=== PATIENT | male | born 1955 | race African-American/Black ===

== ENCOUNTER 2021-03-07 13:25 | Observation (INO) ==
[2021-03-07 13:36] VITALS: BMI 27.8
--- NOTE | 2021-03-07 14:13 | DR.N/VMALE ---
HPI Time Seen Time Seen by Provider: 03/07/21 13:43 Primary Care Physician Primary Care Physician: RIGO HPI Comment HPI Comment: PATIENT IS 65YR OLD MALE IN ER WITH ABDOMINAL PAIN, NAUSEA AND VOMITING SINCE 10:30am today. Complaints Chief Complaint Doctors Comments: ABDOMINAL PAIN, NAUSEA AND VOMITING SINCE 10:30AM TODAY. Chief Complaint:: PATIENT CAME TO ER REPORTS HAVING NAUSEA AND VOMITING WITH LOWER ABDOMINAL PAIN ONSET 1030AM. COVID-19 Coronavirus risk:travel/contact w/high risk person: No Has patient experienced Coronavirus symptoms: No Reviewed Nurses Notes Reviewed: Yes Source History Provided: Patient and Family Member Mode of Arrival Mode of Arrival: Wheelchair Timing Onset of Chief Complaint: 03/07/21 Context Onset: Spontaneous Recent: None History of: None Quality Quality: Food Particles Associated Signs and Symptoms Abdominal Pain Quality: Cramping Abdominal Pain Location: RLQ and LLQ Symptoms: Abdominal Pain PMH PMH Past Medical History: Yes Past Medical History: Anxiety, Arthritis, Coronary Artery Disease, Dementia and Hypertension Past Surgical History: Yes Surgical History: Appendectomy Past Surgical History Comment: AFIB Family History History of Family Medical Conditions: No Social History Do you use any recreational Drugs:: No Travel Risk Coronavirus risk:travel/contact w/high risk person: No Has patient experienced Coronavirus symptoms: No Infectious screening In the last 2 months have you had wt loss of >10#?: NO Have you had fever, night sweats or hemotysis?: No Have you traveled outside the country in the last 6 months?: No Isolation: Standard ROS Review of Systems Constitutional: No Symptoms Reported and See HPI Eyes: No Symptoms Reported and See HPI ENTM: No Symptoms Reported and See HPI Respiratoy: No Symptoms Reported and See HPI Cardiovascular: No Symptoms Reported and See HPI Gastrointestinal/Abdominal: No Symptoms Reported and See HPI Genitourinary: No Symptoms Reported and See HPI Neurological: No Symptoms Reported and See HPI Musculoskeletal: No Symptoms Reported and See HPI Integumentary: No Symptoms Reported and See HPI Hematologic/Lymphatic: No Symptoms Reported and See HPI Endocrine: No Symptoms Reported and See HPI Psychiatric: No Symptoms Reported and See HPI All Other Systems: Reviewed and Negative PE Vital Signs Vitals: Temperature 97.8 F Pulse Rate 81 Respiratory Rate 20 Blood Pressure 115/70 O2 Sat by Pulse Oximetry 97 General Limitations: No Limitations General Appearance: Alert and In No Apparent Distress Head Head Exam: Normal Inspection Eyes Eye exam: Normal Appearance ENT ENT Exam: Normal Exam Neck Neck Exam: Normal Inspection Chest Chest Inspection: Normal Inspection Respiratory Respiratory Exam: Normal Lung Sounds Bilat Respiratory Exam: Bilateral: Clear to Auscultation Cardiovascular Cardiovascular Exam: Regular Rate and Normal Rhythm Abdominal Exam Abdominal Exam: Normal Inspection, Normal Bowel Sounds and Soft Rectal Rectal Exam: Deferred Exam: Male: Deferred Extremities Extremities Exam: Normal Inspection Back Back Exam: Normal Inspection Neurologic Neurological Exam: Alert and Oriented X3 Psychiatric Psychiatric Exam: Normal Affect and Normal Mood Skin Skin Exam: Warm, Dry, Intact and Normal Color ROR Labs Reviewed Result Diagrams: 03/09/21 05:34 03/09/21 05:34 Laboratory: WBC 11.1 X10^3/uL (3.6-10.0) H 03/07/21 15:00 RBC 4.74 X10^6/uL (4.7-6.0) 03/07/21 15:00 Hgb 13.9 g/dL (13.5-18.0) 03/07/21 15:00 Hct 41.8 % (42.0-54.0) L 03/07/21 15:00 MCV 88.2 fL (80.0-100.0) 03/07/21 15:00 MCH 29.3 pg (27.0-34.0) 03/07/21 15:00 MCHC 33.2 g/dL (33.0-35.0) 03/07/21 15:00 RDW 14.0 % (11.6-16.5) 03/07/21 15:00 Plt Count 162 X10^3/uL (150.0-450.0) 03/07/21 15:00 MPV 10.4 fL (7.4-11.0) 03/07/21 15:00 Neut % (Auto) 86.0 % (42.0-75.0) H 03/07/21 15:00 Lymph % (Auto) 9.2 % (21.0-51.0) L 03/07/21 15:00 [place] % (Auto) 3.6 % (0.0-13.0) 03/07/21 15:00 Eos % (Auto) 0.2 % (0.9-2.9) L 03/07/21 15:00 Baso % (Auto) 1.0 % (0.2-1.0) 03/07/21 15:00 Neut # (Auto) 9.5 x10^3/uL (2.2-4.8) H 03/07/21 15:00 Lymph # (Auto) 1.0 X10^3/uL (1.3-2.9) L 03/07/21 15:00 [place] # (Auto) 0.4 x10^3/uL (0.3-0.8) 03/07/21 15:00 Eos # (Auto) 0.0 x10^3/uL (0.0-0.2) 03/07/21 15:00 Baso # (Auto) 0.1 X10^3/uL (0.0-0.1) 03/07/21 15:00 Absolute Nucleated RBC 0.1 /100WBC 03/07/21 15:00 Sodium 139 mmol/L (136-145) 03/07/21 15:00 Corrected Sodium 141 mmol/L (136-145) 03/07/21 15:00 Potassium 4.3 mmol/L (3.5-5.1) 03/07/21 15:00 Chloride 101 mmol/L (98-107) 03/07/21 15:00 Carbon Dioxide 26.6 mmol/L (21-32) 03/07/21 15:00 BUN 19 mg/dL (7-18) H 03/07/21 15:00 Creatinine 1.22 mg/dL (0.70-1.30) 03/07/21 15:00 Est GFR (MDRD) Af Amer > 60 (>60) 03/07/21 15:00 Est GFR (MDRD) Non-Af > 60 (>60) 03/07/21 15:00 Glucose 193 mg/dL (65-99) H 03/07/21 15:00 Calcium 9.7 mg/dL (8.5-10.1) 03/07/21 15:00 Corrected Calcium TNP 03/07/21 15:00 Total Bilirubin 0.60 mg/dL (0.2-1.0) 03/07/21 15:00 AST 17 Units/L (15-37) 03/07/21 15:00 ALT 26 Units/L (12-78) 03/07/21 15:00 Alkaline Phosphatase 68 Units/L (46-116) 03/07/21 15:00 Total Protein 8.3 g/dL (6.4-8.2) H 03/07/21 15:00 Albumin 4.4 g/dL (3.4-5.0) 03/07/21 15:00 Globulin 3.9 g/dL (2.5-4.5) 03/07/21 15:00 Albumin/Globulin Ratio 1.1 Ratio (1.1-2.1) 03/07/21 15:00 Amylase 37 Units/L (25-115) 03/07/21 15:00 Lipase 67 Units/L (73-393) L 03/07/21 15:00 Specimen Type Clean catch urine 03/07/21 15:00 Urine Color Dark yellow (YELLOW) 03/07/21 15:00 Urine Appearance Clear (CLEAR) 03/07/21 15:00 Urine pH 5.0 (5.0 - 8.0) 03/07/21 15:00 Ur Specific [place] 1.030 (1.000-1.030) 03/07/21 15:00 Urine Protein 2+ (NEGATIVE) 03/07/21 15:00 Urine Glucose (UA) Negative (NEGATIVE) 03/07/21 15:00 Urine Ketones 1+ (NEGATIVE) 03/07/21 15:00 Urine Occult Blood Negative (NEGATIVE) 03/07/21 15:00 Urine Nitrite Negative (NEGATIVE) 03/07/21 15:00 Urine Bilirubin Negative (NEGATIVE) 03/07/21 15:00 Urine Urobilinogen 1+ (NORMAL) 03/07/21 15:00 Ur Leukocyte Esterase Negative (NEGATIVE) 03/07/21 15:00 Urine RBC None seen /HPF (0-3) 03/07/21 15:00 Urine WBC 0-2 /HPF (0-5) 03/07/21 15:00 Ur Squamous Epith Cells Few /HPF (NEGATIVE) 03/07/21 15:00 Urine Bacteria Trace /HPF (NEGATIVE) 03/07/21 15:00 Hyaline Casts Few /LPF (NEGATIVE) 03/07/21 15:00 Urine Mucus Numerous /HPF (NEGATIVE) 03/07/21 15:00 Ur Culture Indicated? No/not indicated 03/07/21 15:00 SARS CoV-2 RNA Rapid MAYRA Negative (NEGATIVE) 03/07/21 16:55 Opioid Opioid Risk Tool Age (Shaheen box if 16-45): No History of Preadolescent Sexual Abuse: No Total: 0 Total Score Risk Category: Low Risk Copyright: Bruno AMAYA predicting aberrant behaviors
[2021-03-07] MEDS ORDERED: ZOFRAN INJ 4 MG VIAL IM ONE (14:49)
[2021-03-07] MEDS ORDERED: ZOFRAN INJ 4 MG VIAL ONE (14:53)
[2021-03-07 15:10] LABS: BASOPHILS # (AUTO) 0.1 X10^3/uL (0.0-0.1); EOSINOPHILS % (AUTO) 0.2 % (0.9-2.9); HEMATOCRIT 41.8 % (42.0-54.0); HEMOGLOBIN 13.9 g/dL (13.5-18.0); LYMPHOCYTES % (AUTO) 9.2 % (21.0-51.0); MEAN CORPUSCULAR HEMOGLOBIN 29.3 pg (27.0-34.0); MEAN CORPUSCULAR HGB CONC 33.2 g/dL (33.0-35.0); MEAN CORPUSCULAR VOLUME 88.2 fL (80.0-100.0); MEAN PLATELET VOLUME 10.4 fL (7.4-11.0); MONOCYTES # (AUTO) 0.4 x10^3/uL (0.3-0.8); MONOCYTES % (AUTO) 3.6 % (0.0-13.0); NEUTROPHILS # (AUTO) 9.5 x10^3/uL (2.2-4.8); PLATELET COUNT 162 X10^3/uL (150.0-450.0); RED BLOOD COUNT 4.74 X10^6/uL (4.7-6.0); WHITE BLOOD COUNT 11.1 X10^3/uL (3.6-10.0)
[2021-03-07 15:18] LABS: ALANINE AMINOTRANSFERASE 26 Units/L (12-78); ALBUMIN 4.4 g/dL (3.4-5.0); ALKALINE PHOSPHATASE 68 Units/L (46-116); AMYLASE 37 Units/L (25-115); ASPARTATE AMINO TRANSFERASE 17 Units/L (15-37); BLOOD UREA NITROGEN 19 mg/dL (7-18); CALCIUM 9.7 mg/dL (8.5-10.1); CARBON DIOXIDE 26.6 mmol/L (21-32); CHLORIDE 101 mmol/L (98-107); COR NA(FOR HYPERGLY) 141 mmol/L (136-145); CREATININE 1.22 mg/dL (0.70-1.30); LIPASE 67 Units/L (73-393); SODIUM 139 mmol/L (136-145); TOTAL PROTEIN 8.3 g/dL (6.4-8.2); eGFR NON BLACK RACES > 60 (>60)
[2021-03-07 15:23] LABS: BILIRUBIN,URINE NEGATIVE (NEGATIVE); BLOOD/HEMOGLOBIN,URINE NEGATIVE (NEGATIVE); GLUCOSE, URINE NEGATIVE (NEGATIVE); KETONES,URINE 1+ (NEGATIVE); LEUKOCYTE ESTERASE ,URINE NEGATIVE (NEGATIVE); NITRITES,URINE NEGATIVE (NEGATIVE); PROTEIN,URINE 2+ (NEGATIVE); UROBILINOGEN,URINE 1+ (NORMAL)
[2021-03-07 15:32] LABS: APPEARANCE,URINE CLEAR (CLEAR); BACTERIA,URINE TRACE /HPF (NEGATIVE); COLOR,URINE DARK YELLOW (YELLOW); RBC,URINE NONE SEEN /HPF (0-3); SQUAMOUS EPITHELIAL CELL,UR FEW /HPF (NEGATIVE)
[2021-03-07 15:33] LABS: HYALINE CASTS, URINE FEW /LPF (NEGATIVE); MUCUS,URINE NUMEROUS /HPF (NEGATIVE)
--- NOTE | 2021-03-07 15:54 | CT ---
HISTORYABDOMINAL PAIN, N/V nausea and vomiting. History of appendectomy.STUDYABDOMEN/PELVIS W/O CONCOMPARISONNoneTECHNIQUEMultiple CT axial images of the abdomen and pelvis were obtained without IV contrast. Coronal and sagittal images were reconstructed. Dose reduction techniques included Automated Exposure Control (AEC) and adjustment of mA and kV.FINDINGSThere is diffuse small bowel dilatation measuring up to the 3.1 cm in diameter. I believe I can identify the terminal ileum at the ileocecal valve and it has a normal caliber. Findings are consistent with a small bowel obstruction.There is no pneumoperitoneum. No focal wall thickening or edema around the bowel. Little air and gas is present in the attenuated colon.The lung bases are clear. Heart size is normal. Liver, gallbladder, spleen, adrenal glands, and pancreas are unremarkable.Tiny stone lower pole right kidney measures 3 mm. No abnormal calcification in the left kidney, the ureters, or the urinary bladder. No hydroureteronephrosis. No urinary bladder wall thickening or edema.Degenerative changes are present in the spine.IMPRESSION1. Findings consistent with small-bowel obstruction2. Nonobstructing right renal calculusElectronically signed by: Sae Easton (Mar 07, 2021 15:52:12)
[2021-03-07] MEDS ORDERED: PEPCID 20 MG IV PREMIX* 20 MG/50 ML BAG IV PRN (19:34)
[2021-03-07] MEDS ORDERED: ZOFRAN INJ 4 MG VIAL IVP PRN (19:34)
[2021-03-07] MEDS: FLAGYL IV PREMIX 500 MG BAG 500 MG/100 ML BAG IV SCH (20:30)
[2021-03-07] MEDS: MORPHINE SULFATE INJ 2 MG INJ IVP PRN (21:00)
[2021-03-07] MEDS: ZOSYN VIAL 3.375 GRAMS 3.375 G in NS 50 ML IV + SPIKE MINIBAG* 50 ML IV SCH ×2 (21:30→23:52)
[2021-03-07] MEDS ORDERED: NS 1000 ML 1,000 ML ONE (21:35)
[2021-03-08] MEDS: FLAGYL IV PREMIX 500 MG BAG 500 MG/100 ML BAG IV SCH ×4 (02:35→22:34)
[2021-03-08] MEDS: ZOSYN VIAL 3.375 GRAMS 3.375 G in NS 50 ML IV + SPIKE MINIBAG* 50 ML IV SCH ×3 (05:25→22:33)
[2021-03-08 06:15] LABS: BILIRUBIN,URINE NEGATIVE (NEGATIVE); BLOOD/HEMOGLOBIN,URINE NEGATIVE (NEGATIVE); GLUCOSE, URINE NEGATIVE (NEGATIVE); KETONES,URINE NEGATIVE (NEGATIVE); LEUKOCYTE ESTERASE ,URINE 1+ (NEGATIVE); NITRITES,URINE NEGATIVE (NEGATIVE); PROTEIN,URINE 1+ (NEGATIVE); UROBILINOGEN,URINE 1+ (NORMAL)
[2021-03-08 06:24] LABS: COLOR,URINE DARK YELLOW (YELLOW)
[2021-03-08 06:25] LABS: AMORPHOUS SEDIMENT,UR 1+ /HPF (NEGATIVE); APPEARANCE,URINE HAZY (CLEAR); BACTERIA,URINE TRACE /HPF (NEGATIVE); MUCUS,URINE FEW /HPF (NEGATIVE); RBC,URINE 0-2 /HPF (0-3); SQUAMOUS EPITHELIAL CELL,UR RARE /HPF (NEGATIVE); TRANSITIONAL EPI CELLS,URINE RARE /HPF (NEGATIVE)
[2021-03-08 06:42] LABS: BASOPHILS % (AUTO) 0.3 % (0.2-1.0); EOSINOPHILS # (AUTO) 0.1 x10^3/uL (0.0-0.2); EOSINOPHILS % (AUTO) 0.5 % (0.9-2.9); HEMATOCRIT 37.9 % (42.0-54.0); HEMOGLOBIN 12.8 g/dL (13.5-18.0); LYMPHOCYTES # (AUTO) 1.7 X10^3/uL (1.3-2.9); MEAN CORPUSCULAR HEMOGLOBIN 29.5 pg (27.0-34.0); MEAN CORPUSCULAR HGB CONC 33.7 g/dL (33.0-35.0); MEAN CORPUSCULAR VOLUME 87.4 fL (80.0-100.0); MEAN PLATELET VOLUME 10.1 fL (7.4-11.0); MONOCYTES # (AUTO) 0.8 x10^3/uL (0.3-0.8); NEUTROPHILS # (AUTO) 8.7 x10^3/uL (2.2-4.8); NEUTROPHILS % (AUTO) 77.2 % (42.0-75.0); PLATELET COUNT 159 X10^3/uL (150.0-450.0); RED BLOOD COUNT 4.34 X10^6/uL (4.7-6.0); WHITE BLOOD COUNT 11.3 X10^3/uL (3.6-10.0)
[2021-03-08 06:59] LABS: ALANINE AMINOTRANSFERASE 22 Units/L (12-78); ALBUMIN 3.7 g/dL (3.4-5.0); ALKALINE PHOSPHATASE 58 Units/L (46-116); AMYLASE 30 Units/L (25-115); ASPARTATE AMINO TRANSFERASE 16 Units/L (15-37); BLOOD UREA NITROGEN 19 mg/dL (7-18); CALCIUM 8.9 mg/dL (8.5-10.1); CARBON DIOXIDE 25.4 mmol/L (21-32); CHLORIDE 104 mmol/L (98-107); LIPASE 64 Units/L (73-393); SODIUM 139 mmol/L (136-145); TOTAL PROTEIN 7.3 g/dL (6.4-8.2); eGFR NON BLACK RACES > 60 (>60)
--- NOTE | 2021-03-08 08:56 | RAD ---
HISTORYSBOSTUDYKUBCOMPARISONCT abdomen 03/07/2021FINDINGSThere are scattered dilated segments of air-filled small bowel. Gas is noted in the colon. There is no evidence for developing mass or ascites. The urinary bladder is mildly distended. No organ enlargement is seen.IMPRESSIONDescribed intestinal gas pattern consistent with ileus or partial small bowel obstruction.Electronically signed by: EHSAN ARREDONDO (Mar 08, 2021 08:54:20)
[2021-03-08] MEDS: MORPHINE SULFATE INJ 2 MG INJ IVP PRN (09:22)
--- NOTE | 2021-03-08 10:51 | DR.H&P ---
H&P - History & Physical for Day of: H&P Date: 03/07/21 - Chief Complaint Chief Complaint: ABDOMINAL PAIN, NAUSEA, VOMITING - History of Present Illness History of Present Illness: IS A 65 YEAR OLD B/M. [facility]. HE PRESENTED TO THE ER WITH COMPLAINTS OF LOWER ABDOMINAL PAIN, NAUSEA, AND VOMTING. HE REPORTS THAT PAIN ONSET WAS AROUND 3 HOURS PRIOR TO ARRIVAL. PAIN IS DESCRIBED CRAMPING, CONSTANT, AND WAS RATED A 7/10 ON ARRIVAL TO ER. HIS PMH INCLUDES ARTHRITIS, ANXIETY, CAD, DEMENTIA, HTN, ATRIAL FIBRILLATION, AND APPENDECTOMY. ON ARRIVAL TO THE ER, VITALS WERE 97.8-81-20-97%-115/70. LABS WERE OBTAINED. ABNORMAL LAB VALUES INCLUDED THE FOLLOWING: WBC 11.1, HCT 41.8, BUN 19, GLUCOSE 193, TOTAL PROTEIN 8.3, LIPASE 67. URINALYSIS REVEALED: WBC 5-10, RBC 0-2, LEUKOCYTES 1+, BACTERIA TRACE. COVID-19 NEGATIVE. AN ABDOMEN/PELVIS CT WITHOUT CONTRAST WAS OBTAINED AND REVEALED: There is diffuse small bowel dilatation measuring up to the 3.1 cm in diameter. I believe I can identify the terminal ileum at the ileocecal valve and it has a normal caliber. Findings are consistent with a small bowel obstruction. There is no pneumoperitoneum. No focal wall thickening or edema around the bowel. Little air and gas is present in the attenuated colon. The lung bases are clear. Heart size is normal. Liver, gallbladder, spleen, adrenal glands, and pancreas are unremarkable. Tiny stone lower pole right kidney measures 3 mm. No abnormal calcification in the left kidney, the ureters, or the urinary bladder. No hydroureteronephrosis. No urinary bladder wall thickening or edema. Degenerative changes are present in the spine. IN THE ER, PATIENT WAS GIVEN ZOFRAN 4MG IM X 1 DOSE. HE WAS ADMITTED TO THE HOSPITAL FOR FURTHER EVALUATION AND TREATMENT OF SMALL BOWEL OBSTRUCTION, ABDOMINAL PAIN. PATIENT REFUSED INSERTION OF NG TUBE. HE WAS STARTED ON NORMAL SALINE AT 75 ML/HR, ZOSYN 3.375G IV TID, FLAGYL 500MG IV Q6H, PEPCID 20MG IV BID, MORPHINE 2MG IV Q4H PRN, AND ZOFRAN 4MG IV Q6H PRN. WE WILL CONSULT WITH , GENERAL SURGEON. OTHERWISE, WE PLAN TO FOLLOW UP WITH AM LABS AND CONTINUE TO MONITOR. TIME SPENT ON CLINICAL ASSESSMENT, REVIEWING LABS AND IMAGING, DECISION MAKING, AND DOCUMENTATION GREATER THAN 75 MINUTES. - Past Medical History Past Medical History: Coronary Artery Disease, Hypertension, Dementia, Anxiety, Arthritis - Past Surgical History Surgical History: Appendectomy, Other - Family History Family Medical History: Diabetes Mellitus, Cancer, Heart Failure, Hypertension - Social History Alcohol Use: Occasionally Drug Use: None - Medications Home Medications: No Known Drug Allergies Allergy (Verified 03/07/21 19:26) CONTINUE taking the following medications amlodipine 10 mg PO ONCE 03/07/21 [History] aspirin 81 mg PO ONCE 03/07/21 [History] gabapentin 100 mg PO QHS 03/07/21 [History] rosuvastatin 20 mg PO ONCE 03/07/21 [History] sertraline 100 mg PO Q24H 03/07/21 [History] - Review of Systems Constitutional: Weakness Eyes: No Symptoms Reported ENT: No Symptoms Reported Respiratory: No Symptoms Reported Cardiovascular: No Symptoms Reported Gastrointestinal: See HPI, Nausea, Vomiting, Abdominal Pain Genitourinary: No Symptoms Reported Musculoskeletal: No Symptoms Reported Skin: No Symptoms Reported Neurological: Weakness - Physical Exam Vital Signs: Temperature 98.9 F Pulse Rate [Right Radial] 82 Pulse Rate 81 Respiratory Rate 20 Blood Pressure [Right Arm] 118/76 Blood Pressure 115/70 O2 Sat by Pulse Oximetry 95 Oriented: Normal Eyes: Normal Ear: Normal Nose: Normal Throat: Normal Respiratory: Diminished Throughout Cardiovascular: Normal : Normal Auscultation: Bowel Sounds: Normal Palpation: Normal Tenderness: RLQ, LLQ, Moderate Skin: Normal Musculoskeletal: Normal Psychiatric: Normal Mood Description: Calm Affect: Normal Speech Pattern: Clear - Assessment/Plan (1) Small bowel obstruction Status: Acute Plan: ADMIT, BOWEL REST, NORMAL SALINE AT 75 ML/HR, ZOSYN 3.375G IV TID, FLAGYL 500MG IV Q6H, PEPCID 20MG IV BID, MORPHINE 2MG IV Q4H PRN, AND ZOFRAN 4MG IV Q6H PRN. CONSULT GENERAL SURGEON (2) Abdominal pain Qualifiers: Abdominal location: lower abdomen, unspecified Qualified Code(s): R10.30 - Lower abdominal pain, unspecified Status: Acute - Allergies Allergies/Adverse Reactions: Allergies Allergy/AdvReac Type Severity Reaction Status Date / Time No Known Drug Allergies Allergy Verified 03/07/21 19:26
[2021-03-08] MEDS: NS 1000 ML 1,000 ML IV SCH (12:01)
[2021-03-08] MEDS: PROTONIX INJ 40 MG VIAL IVP SCH ×2 (12:07→21:54)
[2021-03-08] MEDS: PEPCID 20 MG IV PREMIX* 20 MG/50 ML BAG IV SCH ×2 (12:08→21:53)
[2021-03-08] MEDS ORDERED: K-DUR TAB 20 MEQ PO PRN (16:12)
[2021-03-08] MEDS ORDERED: POTASSIUM CHLORIDE LIQ 20 MEQ UDC PO PRN (16:12)
[2021-03-08] MEDS ORDERED: K-RIDER 10 MEQ/NS 100 ML 10 MEQ/100 ML BAG IV PRN (16:12)
[2021-03-08] MEDS ORDERED: POTASSIUM CHL 40 MEQ/NS 0.45% 500 ML IV PRN (16:12)
[2021-03-08] MEDS ORDERED: KLOR-CON PO PRN (16:12)
[2021-03-08] MEDS ORDERED: MICRO K EXTEN CAP 10 MEQ PO PRN (16:12)
[2021-03-08] MEDS ORDERED: POTASSIUM CHL 60 MEQ/NS 0.45% 500 ML IV PRN (16:12)
--- NOTE | 2021-03-08 17:08 | DR.CONSULT ---
CONSULT Consultation for Day of: Date: 03/08/21 Chief Complaint Chief Complaint: Abdominal pain, nauseaa and vomiting. Allergies Allergies Allergy/AdvReac Type Severity Reaction Status Date / Time No Known Drug Allergies Allergy Verified 03/07/21 19:26 History of Present Illness History of Present Illness: 65 year old male with history of dementia, coronary disease, hypertension, atrial fibrillation who presented complaining of abdominal pain nausea and vomiting. Is evaluation in the emergency room included a CT scan which was interpreted as consistent with possible small bowel obstruction. He has had a previous open appendectomy in the past. He had denied initial play this or bowel movements but it's now passing flatus and his nausea is resolved. Past Medical History Past Medical History: Anxiety, Arthritis, Coronary Artery Disease, Dementia and Hypertension Past Surgical History Surgical History: Appendectomy and Other Family History Family Medical History: Diabetes Mellitus, Cancer, Heart Failure and Hypertension Social History Does patient currently use any type of tobacco product: No Alcohol Use: Occasionally Drug Use: None Medications Home Medications: No Known Drug Allergies Allergy (Verified 03/07/21 19:26) CONTINUE taking the following medications amlodipine 10 mg PO ONCE 03/07/21 [History] aspirin 81 mg PO ONCE 03/07/21 [History] gabapentin 100 mg PO QHS 03/07/21 [History] rosuvastatin 20 mg PO ONCE 03/07/21 [History] sertraline 100 mg PO Q24H 03/07/21 [History] Review of Systems Constitutional: See HPI Gastrointestinal: Nausea, Vomiting and Abdominal Pain Physical Exam Vital Signs: Temperature 97.9 F Pulse Rate [Right Radial] 85 Pulse Rate 81 Respiratory Rate 20 hemoglobin equals 12. 8 ,potassium equals 3. 4 ,b u n equals 19 ,initial CT scan of the abdomen consistent with small bowel obstruction. Repeat acute abdominal Series this A. M. Shows decrease in small bowel dilatation with gas into the colon Blood Pressure [Right Arm] 135/90 Blood Pressure 115/70 O2 Sat by Pulse Oximetry 96 Oriented: Person and Place Eyes: Normal Ear: Normal Nose: Normal Throat: Normal Respiratory: Clear Throughout Cardiovascular: Irregular (Irregularly irregular. Not tachycardic ) : Normal Auscultation: Bowel Sounds: Decreased Palpation: Other (mildly distended ) Tenderness: Normal Skin: Normal Musculoskeletal: Normal Psychiatric: Other (history of dementia ) Mood Description: Calm Affect: Normal Speech Pattern: Clear Plan Plan: Admitting diagnosis of small bowel obstruction. This appears to be improving. Will begin clear liquid diet .
[2021-03-09] MEDS: FLAGYL IV PREMIX 500 MG BAG 500 MG/100 ML BAG IV SCH ×4 (02:04→21:13)
[2021-03-09] MEDS: NS 1000 ML 1,000 ML IV SCH ×2 (02:04→14:36)
[2021-03-09] MEDS: ZOSYN VIAL 3.375 GRAMS 3.375 G in NS 50 ML IV + SPIKE MINIBAG* 50 ML IV SCH ×3 (05:04→21:13)
[2021-03-09 06:26] LABS: BASOPHILS % (AUTO) 0.3 % (0.2-1.0); EOSINOPHILS # (AUTO) 0.2 x10^3/uL (0.0-0.2); HEMATOCRIT 36.3 % (42.0-54.0); HEMOGLOBIN 12.2 g/dL (13.5-18.0); LYMPHOCYTES # (AUTO) 2.1 X10^3/uL (1.3-2.9); LYMPHOCYTES % (AUTO) 27.5 % (21.0-51.0); MEAN CORPUSCULAR HEMOGLOBIN 29.4 pg (27.0-34.0); MEAN CORPUSCULAR HGB CONC 33.7 g/dL (33.0-35.0); MEAN CORPUSCULAR VOLUME 87.2 fL (80.0-100.0); MEAN PLATELET VOLUME 9.7 fL (7.4-11.0); MONOCYTES # (AUTO) 0.5 x10^3/uL (0.3-0.8); MONOCYTES % (AUTO) 6.5 % (0.0-13.0); NEUTROPHILS # (AUTO) 4.7 x10^3/uL (2.2-4.8); NEUTROPHILS % (AUTO) 62.7 % (42.0-75.0); PLATELET COUNT 142 X10^3/uL (150.0-450.0); RED BLOOD COUNT 4.16 X10^6/uL (4.7-6.0); RED CELL DISTRIBUTION WIDTH 13.7 % (11.6-16.5); WHITE BLOOD COUNT 7.5 X10^3/uL (3.6-10.0)
[2021-03-09 06:37] LABS: ALANINE AMINOTRANSFERASE 16 Units/L (12-78); ALBUMIN 3.2 g/dL (3.4-5.0); ALKALINE PHOSPHATASE 47 Units/L (46-116); ASPARTATE AMINO TRANSFERASE 14 Units/L (15-37); BLOOD UREA NITROGEN 16 mg/dL (7-18); CALCIUM 8.5 mg/dL (8.5-10.1); CARBON DIOXIDE 24.7 mmol/L (21-32); CHLORIDE 105 mmol/L (98-107); COR CA(FOR HYPOALB) 9.1 mg/dL (8.5-10.1); CREATININE 1.17 mg/dL (0.70-1.30); SODIUM 138 mmol/L (136-145); TOTAL PROTEIN 6.5 g/dL (6.4-8.2); eGFR NON BLACK RACES > 60 (>60)
--- NOTE | 2021-03-09 08:01 | RAD ---
HISTORYSBOSTUDYAbdomen with upright chest three viewsCOMPARISONKUB 03/08/2021FINDINGSAP upright chest: Normal heart size, cardiac pacing device, grossly clear lungs and pleural spaces without evidence for pleural fluid or pneumoperitoneum.Abdomen: Supine and upright views demonstrate mild selective small-bowel dilatation with gas in the colon. No evidence for pneumatosis, free air, mass or ascites.IMPRESSIONIntestinal gas pattern consistent with ileus or partial SBO. No complicating perforation is identified.Electronically signed by: EHSAN ARREDONDO (Mar 09, 2021 07:59:19)
[2021-03-09] MEDS: PROTONIX INJ 40 MG VIAL IVP SCH ×2 (08:27→20:50)
[2021-03-09] MEDS: PEPCID 20 MG IV PREMIX* 20 MG/50 ML BAG IV SCH ×2 (08:27→20:51)
--- NOTE | 2021-03-09 12:50 | NOTE.SOAP ---
Soap Note Note for Day of Date of Exam: 03/09/21 Subjective Data Subjective Data: Patient continues to be stable. Taking Clear liquids without difficulty. Had one large bowel movement yesterday. Objective Data Temperature: 98.3 F Pulse Rate: 65 Respiratory Rate: 20 Blood Pressure: 139/86 O2 Sat by Pulse Oximetry: 97 Objective Data: abdomen Soft and non-tender. Mildly distended .Abdominal films show mild dilatation of the small bowel . Assessment Assessment: ileus versus small bowel obstruction, improving Plan Plan: advance to regular diet.
--- NOTE | 2021-03-09 13:51 | CT ---
HISTORYFOLLOW UP SBO, AB PAIN appendectomySTUDYABDOMEN/PELVIS W/O CONCOMPARISONCT abdomen and pelvis 03/07/2021TECHNIQUEMultiple CT axial images of the abdomen and pelvis were obtained without IV contrast. Coronal and sagittal images were reconstructed. Dose reduction techniques included Automated Exposure Control (AEC) and adjustment of mA and kV.FINDINGSSmall bowel dilatation is present. This may be slightly more than on the prior study. Maximum diameter today is 3.5 cm as measured in the left mid abdomen, previously 3.1 cm. Terminal ileum measures 9 mm. Findings consistent with small-bowel obstruction. No pneumoperitoneum.There is minimal edema around the dilated small bowel in the lower abdomen and right pelvis when compared to previously. No pneumatosis intestinalis. No portal venous gas or mesenteric venous gas. No evidence for abscess. Small volume ascites in the pelvis is stable in amount.Nonobstructing right renal calculus unchanged. Lung bases clear.IMPRESSION1. Small-bowel obstruction, with slightly more dilatation than previously2. New edema around small bowel loops in the right lower abdomen without evidence for perforationElectronically signed by: Sae Easton (Mar 09, 2021 13:48:53)
--- NOTE | 2021-03-09 18:47 | PCM.PROG ---
Progress Note - Progress Note for Day of Date of Exam: 03/09/21 - Subjective Subjective: WAS ADMITTED FOR TREATMENT OF A SMALL BOWEL OBSTRUCTION AND ABDOMINAL PAIN. TODAY, HE IS ALERT AND ORIENTED, LYING IN BED ON MORNING ROUNDS. HE CONTINUES WITH COMPLAINTS OF MILD LOWER ABDOMINAL PAIN, BUT REPORTS SLIGHT IMPROVEMENT IN SYMPTOMS SINCE YESTERDAY. HE DOES ADMIT TO A BOWEL MOVEMENT LAST NIGHT. ON EXAMINATION, HEART IS REGULAR IN RATE AND RHYTHM. BILATERAL LUNGS NOTED TO HAVE DIMINISHED LUNG SOUNDS THROUGHOUT. ABDOMEN ROUND, SOFT, AND NOTED WITH LOWER QUADRANTS TENDERNESS. HYPOACTIVE BOWEL SOUNDS NOTED. HIS VITALS THIS MORNING ARE: 98.3-75-20-96%-121/78. LABS WERE OBTAINED. ABNORMAL LAB VALUES INCLUDE THE FOLLOWING: RBC 4.16, HGB 12.2, HCT 36.3, PLT COUNT 142, AST 14, ALBUMIN 3.2. ABDOMEN XRAY WAS OBTAINED THIS MORNING AND REVEALED: Intestinal gas pattern consistent with ileus or partial SBO. No complicating perforation is identified. WE HAVE REPEATED AN ABDOMEN/PELVIS CT. RESULTS ARE PENDING. HE IS CURRENTLY RECEIVING: NORMAL SALINE AT 75 ML/HR, ZOSYN 3.375G IV TID, FLAGYL 500MG IV Q6H, PEPCID 20MG IV BID, MORPHINE 2MG IV Q4H PRN, AND ZOFRAN 4MG IV Q6H PRN. WE WILL ADVANCE HIM TO A FULL LIQUID DIET TODAY. OTHERWISE, WE WILL CONTINUE WITH CURRENT PLAN OF CARE. TIME SPENT ON CLINICAL ASSESSMENT, REVIEWING LABS AND IMAGING, DECISION MAKING, AND DOCUMENTATION GREATER THAN 45 MINUTES. - Past Medical Family Social History Past Med/Fam/Surg Hx: No changes since H&P Allergies: Allergies No Known Drug Allergies Allergy (Verified 03/07/21 19:26) - Review of Systems ROS: No change since H&P - Vital Signs and I&O's Vital Signs: Temperature 97.8 F Pulse Rate [Right Radial] 64 Pulse Rate 65 Respiratory Rate 20 Blood Pressure [Right Arm] 166/95 Blood Pressure 139/86 O2 Sat by Pulse Oximetry 97 Intake and Output: Intake & Output 03/07/21 03/08/21 03/09/21 03/10/21 11:59 11:59 11:59 11:59 Intake Total 0 / 0 1325 / 1325 2145 / 2145 Balance 0 / 0 1325 / 1325 2145 / 2145 - Physical Exam Oriented: Person, Place Eyes: Normal Ear: Normal Nose: Normal Throat: Normal Respiratory: Generalized, Diminished : Normal Auscultation: Bowel Sounds: Decreased Tenderness: Normal Skin: Normal Musculoskeletal: Normal Psychiatric: Other (history of dementia) Mood Description: Calm Affect: Normal Speech Pattern: Clear, Appropriate - Laboratory and Diagnostics Result Diagrams: 03/09/21 05:34 03/09/21 05:34 Labs: Laboratory WBC 7.5 X10^3/uL (3.6-10.0) 03/09/21 05:34 RBC 4.16 X10^6/uL (4.7-6.0) L 03/09/21 05:34 Hgb 12.2 g/dL (13.5-18.0) L 03/09/21 05:34 Hct 36.3 % (42.0-54.0) L 03/09/21 05:34 MCV 87.2 fL (80.0-100.0) 03/09/21 05:34 MCH 29.4 pg (27.0-34.0) 03/09/21 05:34 MCHC 33.7 g/dL (33.0-35.0) 03/09/21 05:34 RDW 13.7 % (11.6-16.5) 03/09/21 05:34 Plt Count 142 X10^3/uL (150.0-450.0) L 03/09/21 05:34 MPV 9.7 fL (7.4-11.0) 03/09/21 05:34 Neut % (Auto) 62.7 % (42.0-75.0) 03/09/21 05:34 Lymph % (Auto) 27.5 % (21.0-51.0) 03/09/21 05:34 [place] % (Auto) 6.5 % (0.0-13.0) 03/09/21 05:34 Eos % (Auto) 3.0 % (0.9-2.9) H 03/09/21 05:34 Baso % (Auto) 0.3 % (0.2-1.0) 03/09/21 05:34 Neut # (Auto) 4.7 x10^3/uL (2.2-4.8) 03/09/21 05:34 Lymph # (Auto) 2.1 X10^3/uL (1.3-2.9) 03/09/21 05:34 [place] # (Auto) 0.5 x10^3/uL (0.3-0.8) 03/09/21 05:34 Eos # (Auto) 0.2 x10^3/uL (0.0-0.2) 03/09/21 05:34 Baso # (Auto) 0.0 X10^3/uL (0.0-0.1) 03/09/21 05:34 Absolute Nucleated RBC 0.1 /100WBC 03/09/21 05:34 Sodium 138 mmol/L (136-145) 03/09/21 05:34 Corrected Sodium TNP 03/09/21 05:34 Potassium 3.7 mmol/L (3.5-5.1) 03/09/21 05:34 Chloride 105 mmol/L (98-107) 03/09/21 05:34 Carbon Dioxide 24.7 mmol/L (21-32) 03/09/21 05:34 BUN 16 mg/dL (7-18) 03/09/21 05:34 Creatinine 1.17 mg/dL (0.70-1.30) 03/09/21 05:34 Est GFR (MDRD) Af Amer > 60 (>60) 03/09/21 05:34 Est GFR (MDRD) Non-Af > 60 (>60) 03/09/21 05:34 Glucose 99 mg/dL (65-99) 03/09/21 05:34 Calcium 8.5 mg/dL (8.5-10.1) 03/09/21 05:34 Corrected Calcium 9.1 mg/dL (8.5-10.1) 03/09/21 05:34 Magnesium 2.0 mg/dL (1.7-2.9) 03/08/21 06:08 Total Bilirubin 0.80 mg/dL (0.2-1.0) 03/09/21 05:34 AST 14 Units/L (15-37) L 03/09/21 05:34 ALT 16 Units/L (12-78) 03/09/21 05:34 Alkaline Phosphatase 47 Units/L (46-116) 03/09/21 05:34 Total Protein 6.5 g/dL (6.4-8.2) 03/09/21 05:34 Albumin 3.2 g/dL (3.4-5.0) L 03/09/21 05:34 Globulin 3.3 g/dL (2.5-4.5) 03/09/21 05:34 Albumin/Globulin Ratio 1.0 Ratio (1.1-2.1) L 03/09/21 05:34 Amylase 30 Units/L (25-115) 03/08/21 06:08 Lipase 64 Units/L (73-393) L 03/08/21 06:08 Specimen Type Clean catch urine 03/08/21 05:50 Urine Color Dark yellow (YELLOW) 03/08/21 05:50 Urine Appearance Hazy (CLEAR) 03/08/21 05:50 Urine pH 5.0 (5.0 - 8.0) 03/08/21 05:50 Ur Specific [place] 1.025 (1.000-1.030) 03/08/21 05:50 Urine Protein 1+ (NEGATIVE) 03/08/21 05:50 Urine Glucose (UA) Negative (NEGATIVE) 03/08/21 05:50 Urine Ketones Negative (NEGATIVE) 03/08/21 05:50 Urine Occult Blood Negative (NEGATIVE) 03/08/21 05:50 Urine Nitrite Negative (NEGATIVE) 03/08/21 05:50 Urine Bilirubin Negative (NEGATIVE) 03/08/21 05:50 Urine Urobilinogen 1+ (NORMAL) 03/08/21 05:50 Ur Leukocyte Esterase 1+ (NEGATIVE) 03/08/21 05:50 Urine RBC 0-2 /HPF (0-3) 03/08/21 05:50 Urine WBC 5-10 /HPF (0-5) A 03/08/21 05:50 Ur Squamous Epith Cells Rare /HPF (NEGATIVE) 03/08/21 05:50 Ur Transition Epith Cell Rare /HPF (NEGATIVE) 03/08/21 05:50 Amorphous Sediment 1+ /HPF (NEGATIVE) 03/08/21 05:50 Urine Bacteria Trace /HPF (NEGATIVE) 03/08/21 05:50 Hyaline Casts Few /LPF (NEGATIVE) 03/07/21 15:00 Urine Mucus Few /HPF (NEGATIVE) 03/08/21 05:50 Ur Culture Indicated? No/not indicated 03/08/21 05:50 SARS CoV-2 RNA Rapid MAYRA Negative (NEGATIVE) 03/07/21 16:55 - Plan (1) Small bowel obstruction Status: Acute Plan: NORMAL SALINE AT 75 ML/HR, ZOSYN 3.375G IV TID, FLAGYL 500MG IV Q6H, PEPCID 20MG IV BID, MORPHINE 2MG IV Q4H PRN, AND ZOFRAN 4MG IV Q6H PRN. CONSULT GENERAL SURGEON (2) Abdominal pain Status: Acute Qualifiers: Abdominal location: lower abdomen, unspecified Qualified Code(s): R10.30 - Lower abdominal pain, unspecified
[2021-03-10] MEDS: FLAGYL IV PREMIX 500 MG BAG 500 MG/100 ML BAG IV SCH ×2 (02:13→09:03)
[2021-03-10] MEDS: NS 1000 ML 1,000 ML IV SCH (04:50)
[2021-03-10] MEDS: ZOSYN VIAL 3.375 GRAMS 3.375 G in NS 50 ML IV + SPIKE MINIBAG* 50 ML IV SCH (05:00)
[2021-03-10 05:13] LABS: BASOPHILS % (AUTO) 0.5 % (0.2-1.0); EOSINOPHILS # (AUTO) 0.3 x10^3/uL (0.0-0.2); EOSINOPHILS % (AUTO) 5.4 % (0.9-2.9); HEMATOCRIT 36.8 % (42.0-54.0); HEMOGLOBIN 12.4 g/dL (13.5-18.0); LYMPHOCYTES # (AUTO) 2.1 X10^3/uL (1.3-2.9); LYMPHOCYTES % (AUTO) 33.2 % (21.0-51.0); MEAN CORPUSCULAR HEMOGLOBIN 29.6 pg (27.0-34.0); MEAN CORPUSCULAR HGB CONC 33.8 g/dL (33.0-35.0); MEAN CORPUSCULAR VOLUME 87.6 fL (80.0-100.0); MEAN PLATELET VOLUME 10.3 fL (7.4-11.0); MONOCYTES # (AUTO) 0.6 x10^3/uL (0.3-0.8); MONOCYTES % (AUTO) 8.8 % (0.0-13.0); NEUTROPHILS # (AUTO) 3.3 x10^3/uL (2.2-4.8); NEUTROPHILS % (AUTO) 52.1 % (42.0-75.0); PLATELET COUNT 146 X10^3/uL (150.0-450.0); RED CELL DISTRIBUTION WIDTH 13.8 % (11.6-16.5); WHITE BLOOD COUNT 6.4 X10^3/uL (3.6-10.0)
[2021-03-10 05:21] LABS: ALANINE AMINOTRANSFERASE 16 Units/L (12-78); ALBUMIN 3.4 g/dL (3.4-5.0); ALKALINE PHOSPHATASE 48 Units/L (46-116); ASPARTATE AMINO TRANSFERASE 13 Units/L (15-37); BLOOD UREA NITROGEN 10 mg/dL (7-18); CALCIUM 8.7 mg/dL (8.5-10.1); CARBON DIOXIDE 24.6 mmol/L (21-32); CHLORIDE 105 mmol/L (98-107); SODIUM 140 mmol/L (136-145); TOTAL PROTEIN 6.6 g/dL (6.4-8.2); eGFR NON BLACK RACES > 60 (>60)
--- NOTE | 2021-03-10 08:35 | RAD ---
HISTORYSBOSTUDYACUTE ABDOMEN AITLMECFINFTWEHR68/26/2021FINDINGSThe cardiomediastinal silhouette is stable. Left-sided pacer and pacer wires unchanged. The lungs are clear without evidence of airspace disease or effusion. No pneumothorax. The bony thorax appears intact.Evaluation of the abdomen demonstrates similar dilated gas-filled small bowel loops overlying the upper abdomen measuring up to 3.5 cm in diameter. No evidence of pneumoperitoneum. No pathologic soft tissue calcification. The bony structures of the abdomen are intact.IMPRESSION1. No acute cardiopulmonary process.2. Similar distended small-bowel loops measuring up to 3.5 cm in diameter concerning for ileus or small-bowel obstruction. Continued follow-up recommended.Electronically signed by: MK ZHANG (Mar 10, 2021 08:34:34)
[2021-03-10] MEDS: PEPCID 20 MG IV PREMIX* 20 MG/50 ML BAG IV SCH (09:03)
[2021-03-10] MEDS: PROTONIX INJ 40 MG VIAL IVP SCH (09:03)
--- NOTE | 2021-03-10 12:09 | PCM.PROG ---
Progress Note - Progress Note for Day of Date of Exam: 03/10/21 - Subjective Subjective: WAS ADMITTED FOR TREATMENT OF A SMALL BOWEL OBSTRUCTION AND ABDOMINAL PAIN. TODAY, HE IS ALERT AND ORIENTED, LYING IN BED ON MORNING ROUNDS. HE CONTINUES WITH COMPLAINTS OF MILD LOWER ABDOMINAL PAIN, BUT REPORTS SLIGHT IMPROVEMENT IN SYMPTOMS SINCE YESTERDAY. HE HAS BEEN HAVING BOWEL MOVEMENTS. ON EXAMINATION, HEART IS REGULAR IN RATE AND RHYTHM. BILATERAL LUNGS NOTED TO HAVE DIMINISHED LUNG SOUNDS THROUGHOUT. ABDOMEN ROUND, SOFT, AND NOTED WITH LOWER QUADRANTS TENDERNESS. HYPOACTIVE BOWEL SOUNDS NOTED. HIS VITALS THIS MORNING ARE: 98.8-82-20-98%-133/86. LABS WERE OBTAINED. ABNORMAL LAB VALUES INCLUDE THE FOLLOWING: RBC 4.20, HGB 12.4, HCT 36.8, PLT COUNT 146, AST 13. WE R EPEATED AN ABDOMEN/PELVIS CT YESTERDAY. IT REVEALED: 1. Small-bowel obstruction, with slightly more dilatation than previously 2. New edema around small bowel loops in the right lower abdomen without evidence for perforation. ABDOMEN XRAY WAS REPEATED THIS MORNING AND REVEALED: 1. No acute cardiopulmonary process. 2. Similar distended small-bowel loops measuring up to 3.5 cm in diameter concerning for ileus or small-bowel obstruction. HE IS CURRENTLY RECEIVING: NORMAL SALINE AT 75 ML/HR, ZOSYN 3.375G IV TID, FLAGYL 500MG IV Q6H, PEPCID 20MG IV BID, MORPHINE 2MG IV Q4H PRN, AND ZOFRAN 4MG IV Q6H PRN. HE IS TOLERATING SOLID FOODS WELL. WILL CONTINUE TO MONITOR PATIENT. OTHERWISE, WE WILL CONTINUE WITH CURRENT PLAN OF CARE. TIME SPENT ON CLINICAL ASSESSMENT, REVIEWING LABS AND IMAGING, DECISION MAKING, AND DOCUMENTATION GREATER THAN 45 MINUTES. - Past Medical Family Social History Past Med/Fam/Surg Hx: No changes since H&P Allergies: Allergies No Known Drug Allergies Allergy (Verified 03/07/21 19:26) - Review of Systems ROS: No change since H&P - Vital Signs and I&O's Vital Signs: Temperature 98.8 F Pulse Rate [Right Radial] 82 Pulse Rate 65 Respiratory Rate 20 Blood Pressure [Right Arm] 133/86 Blood Pressure 139/86 O2 Sat by Pulse Oximetry 98 Intake and Output: Intake & Output 03/08/21 03/09/21 03/10/2128/21 11:59 11:59 11:59 11:59 Intake Total 0 / 0 1325 / 1325 5358 / 5358 Balance 0 / 0 1325 / 1325 5358 / 5358 - Physical Exam Oriented: Person, Place Eyes: Normal Ear: Normal Nose: Normal Throat: Normal Respiratory: Generalized, Diminished Cardiovascular: Irregular (Irregularly irregular. Not tachycardic) : Normal Auscultation: Bowel Sounds: Decreased Tenderness: Normal Skin: Normal Musculoskeletal: Normal Psychiatric: Other (history of dementia) Mood Description: Calm Affect: Normal Speech Pattern: Clear, Appropriate - Laboratory and Diagnostics Result Diagrams: 03/10/21 03:43 03/10/21 03:43 Labs: Laboratory WBC 6.4 X10^3/uL (3.6-10.0) 03/10/21 03:43 RBC 4.20 X10^6/uL (4.7-6.0) L 03/10/21 03:43 Hgb 12.4 g/dL (13.5-18.0) L 03/10/21 03:43 Hct 36.8 % (42.0-54.0) L 03/10/21 03:43 MCV 87.6 fL (80.0-100.0) 03/10/21 03:43 MCH 29.6 pg (27.0-34.0) 03/10/21 03:43 MCHC 33.8 g/dL (33.0-35.0) 03/10/21 03:43 RDW 13.8 % (11.6-16.5) 03/10/21 03:43 Plt Count 146 X10^3/uL (150.0-450.0) L 03/10/21 03:43 MPV 10.3 fL (7.4-11.0) 03/10/21 03:43 Neut % (Auto) 52.1 % (42.0-75.0) 03/10/21 03:43 Lymph % (Auto) 33.2 % (21.0-51.0) 03/10/21 03:43 [place] % (Auto) 8.8 % (0.0-13.0) 03/10/21 03:43 Eos % (Auto) 5.4 % (0.9-2.9) H 03/10/21 03:43 Baso % (Auto) 0.5 % (0.2-1.0) 03/10/21 03:43 Neut # (Auto) 3.3 x10^3/uL (2.2-4.8) 03/10/21 03:43 Lymph # (Auto) 2.1 X10^3/uL (1.3-2.9) 03/10/21 03:43 [place] # (Auto) 0.6 x10^3/uL (0.3-0.8) 03/10/21 03:43 Eos # (Auto) 0.3 x10^3/uL (0.0-0.2) H 03/10/21 03:43 Baso # (Auto) 0.0 X10^3/uL (0.0-0.1) 03/10/21 03:43 Absolute Nucleated RBC 0.1 /100WBC 03/10/21 03:43 Sodium 140 mmol/L (136-145) 03/10/21 03:43 Corrected Sodium TNP 03/10/21 03:43 Potassium 3.7 mmol/L (3.5-5.1) 03/10/21 03:43 Chloride 105 mmol/L (98-107) 03/10/21 03:43 Carbon Dioxide 24.6 mmol/L (21-32) 03/10/21 03:43 BUN 10 mg/dL (7-18) 03/10/21 03:43 Creatinine 1.20 mg/dL (0.70-1.30) 03/10/21 03:43 Est GFR (MDRD) Af Amer > 60 (>60) 03/10/21 03:43 Est GFR (MDRD) Non-Af > 60 (>60) 03/10/21 03:43 Glucose 96 mg/dL (65-99) 03/10/21 03:43 Calcium 8.7 mg/dL (8.5-10.1) 03/10/21 03:43 Corrected Calcium TNP 03/10/21 03:43 Magnesium 2.0 mg/dL (1.7-2.9) 03/08/21 06:08 Total Bilirubin 0.50 mg/dL (0.2-1.0) 03/10/21 03:43 AST 13 Units/L (15-37) L 03/10/21 03:43 ALT 16 Units/L (12-78) 03/10/21 03:43 Alkaline Phosphatase 48 Units/L (46-116) 03/10/21 03:43 Total Protein 6.6 g/dL (6.4-8.2) 03/10/21 03:43 Albumin 3.4 g/dL (3.4-5.0) 03/10/21 03:43 Globulin 3.2 g/dL (2.5-4.5) 03/10/21 03:43 Albumin/Globulin Ratio 1.1 Ratio (1.1-2.1) 03/10/21 03:43 Amylase 30 Units/L (25-115) 03/08/21 06:08 Lipase 64 Units/L (73-393) L 03/08/21 06:08 Specimen Type Clean catch urine 03/08/21 05:50 Urine Color Dark yellow (YELLOW) 03/08/21 05:50 Urine Appearance Hazy (CLEAR) 03/08/21 05:50 Urine pH 5.0 (5.0 - 8.0) 03/08/21 05:50 Ur Specific [place] 1.025 (1.000-1.030) 03/08/21 05:50 Urine Protein 1+ (NEGATIVE) 03/08/21 05:50 Urine Glucose (UA) Negative (NEGATIVE) 03/08/21 05:50 Urine Ketones Negative (NEGATIVE) 03/08/21 05:50 Urine Occult Blood Negative (NEGATIVE) 03/08/21 05:50 Urine Nitrite Negative (NEGATIVE) 03/08/21 05:50 Urine Bilirubin Negative (NEGATIVE) 03/08/21 05:50 Urine Urobilinogen 1+ (NORMAL) 03/08/21 05:50 Ur Leukocyte Esterase 1+ (NEGATIVE) 03/08/21 05:50 Urine RBC 0-2 /HPF (0-3) 03/08/21 05:50 Urine WBC 5-10 /HPF (0-5) A 03/08/21 05:50 Ur Squamous Epith Cells Rare /HPF (NEGATIVE) 03/08/21 05:50 Ur Transition Epith Cell Rare /HPF (NEGATIVE) 03/08/21 05:50 Amorphous Sediment 1+ /HPF (NEGATIVE) 03/08/21 05:50 Urine Bacteria Trace /HPF (NEGATIVE) 03/08/21 05:50 Hyaline Casts Few /LPF (NEGATIVE) 03/07/21 15:00 Urine Mucus Few /HPF (NEGATIVE) 03/08/21 05:50 Ur Culture Indicated? No/not indicated 03/08/21 05:50 SARS CoV-2 RNA Rapid MAYRA Negative (NEGATIVE) 03/07/21 16:55 - Plan (1) Small bowel obstruction Status: Acute Plan: NORMAL SALINE AT 75 ML/HR, ZOSYN 3.375G IV TID, FLAGYL 500MG IV Q6H, PEPCID 20MG IV BID, MORPHINE 2MG IV Q4H PRN, AND ZOFRAN 4MG IV Q6H PRN. CONSULT GENERAL SURGEON (2) Abdominal pain Status: Acute Qualifiers: Abdominal location: lower abdomen, unspecified Qualified Code(s): R10.30 - Lower abdominal pain, unspecified
[2021-03-10] MEDS ORDERED: NS 100 ML IV 100 ML ONE (12:40)
--- NOTE | 2021-03-10 15:55 | NOTE.SOAP ---
Soap Note Note for Day of Date of Exam: 03/10/21 Subjective Data Subjective Data: Regardless of the findings of x-rays yesterday he is having bowel movements, tolerating regular diet and denies any type of pain. Objective Data Temperature: 98.1 F Pulse Rate: 64 Respiratory Rate: 20 Blood Pressure: 133/88 O2 Sat by Pulse Oximetry: 98 Objective Data: Benign abdomen clinically, no distinction. Assessment Assessment: Small bowel obstruction resolved Plan Plan: patient may be discharged from my standpoint. Follow up with me one week.
[2021-03-10 18:23] VITALS: BP 194/88
== END 2021-03-10 17:25 | disposition home or self-care (01) ==
LOC: ER 13:30 → MED/SURG 13:30
PROVIDERS: ADMIT Internal Medicine; ATTEND Internal Medicine
DX: R10.84 Generalized abdominal pain; K56.690 Other partial intestinal obstruction; I25.10 Atherosclerotic heart disease of native coronary artery without angina pectoris; Z20.822 Contact with and (suspected) exposure to COVID-19; I11.9 Hypertensive heart disease without heart failure; R11.2 Nausea with vomiting, unspecified; R73.09 Other abnormal glucose

== ENCOUNTER 2023-07-19 12:46 | Observation (INO) ==
[2023-07-19 12:55] VITALS: RESP 20
--- NOTE | 2023-07-19 13:48 | DR.DIZZY ---
HPI Time seen Time Seen by Provider: 07/19/23 13:47 PCP Primary Care Physician: Yolanda/Uvaldo HPI Comment HPI Comment: Patient woke with hands and legs shaking and had numbness and tingling in hands and legs. Complaint Chief Complaint Doctor Comments: patient is 67yr old female in ER with numbness and tingling in hands and legs and they were shaking. Patient denies fever, trauma heart failure. Patient have history of hypertension, CAD and arthritis Chief Complaint:: PT STATES THAT WHEN HE WOKE UP THIS MORNING BOTH LEGS AND HANDS WERE SHAKING, AND FEELING NUMB AND TINGLING. Self Treatment fo Chief Complaint: N/A COVID-19 Coronavirus risk:travel/contact w/high risk person: No Has patient experienced Coronavirus symptoms: No Nurses Notes Reviewed Nurses Notes Review: Yes Source History Provided: Patient and Family Member Mode of Arrival Mode of Arrival: Ambulatory Timing Onset of Chief Complaint: 07/19/23 Context Stroke Symptoms: None PMH PMH Past Medical History: Yes Past Medical History: Arthritis, Coronary Artery Disease, Dementia, Depression, Dyslipidemia and Hypertension Past Surgical History: Yes Surgical History: Appendectomy and Ortho Surgery Past Surgical History Comment: FINGER ON LEFT HAND Family History History of Family Medical Conditions: Yes Family Medical History: Diabetes Mellitus, [place], Coronary Artery Disease and Hypertension Social History Does patient currently use any type of tobacco product: No Have you used tobacco products in the last 12 months: No Type of Tobacco Use: None Does any household member use tobacco: No Alcohol Use: None Do you use any recreational Drugs:: No Lives With: Spouse Lives Where: Home Travel Risk Coronavirus risk:travel/contact w/high risk person: No Has patient experienced Coronavirus symptoms: No Infectious screening Have you traveled outside the country in the last 6 months?: No Isolation: Standard ROS Review of Systems Constitutional: No Symptoms Reported; negative Fever, Weakness or Fatigue Eyes: No Symptoms Reported; negative Blurred Vision ENTM: No Symptoms Reported; negative Nose Discharge or Nose Congestion Respiratoy: No Symptoms Reported; negative Moist Cough, Short of Breath or Wheezing Cardiovascular: No Symptoms Reported; negative Chest Pain or Edema Gastrointestinal/Abdominal: No Symptoms Reported; negative Abdominal Pain, Diarrhea, Nausea or Vomiting Genitourinary: No Symptoms Reported; negative Dysuria Neurological: Numbness, Paresthesia and Tingling; negative Headache or Dizziness Musculoskeletal: No Symptoms Reported; negative Muscle Pain Integumentary: No Symptoms Reported; negative Rash or Juandice Hematologic/Lymphatic: No Symptoms Reported Endocrine: No Symptoms Reported; negative Increased Thirst or Increased Urine Psychiatric: No Symptoms Reported All Other Systems: Reviewed and Negative PE Vital Signs Vitals: Vital Signs Temperature 97.7 F Pulse Rate 72 Pulse Rate 65 Pulse Rate 66 Pulse Rate 72 Pulse Rate 100 Respiratory Rate 20 Blood Pressure 153/96 Blood Pressure 153/96 Blood Pressure 137/89 Blood Pressure 134/84 Blood Pressure 118/68 O2 Sat by Pulse Oximetry 99 O2 Sat by Pulse Oximetry 98 O2 Sat by Pulse Oximetry 99 O2 Sat by Pulse Oximetry 97 O2 Sat by Pulse Oximetry 98 O2 Sat by Pulse Oximetry 96 General Limitations: No Limitations General Appearance: Alert and In No Apparent Distress Head Head Exam: Normal Inspection Eyes Eye exam: Normal Appearance; negative Scleral Icterus or Conjunctival Injection Pupils: Regular, Round: Bilateral and Reactive: Bilateral Sclera/Conjunctival: Normal Inspection: Bilateral ENT ENT Exam: Normal Exam, Normal Oropharynx, Normal External Ear Exam and TM's Normal Bilaterally Neck Neck Exam: Normal Inspection and Trachea Midline; negative Tenderness Chest Chest Inspection: Normal Inspection and Symmetric Chest Wall Rise; negative Tenderness Respiratory Respiratory Exam: Normal Lung Sounds Bilat; negative Accessory Muscle Use, Chest Wall Tenderness or Respiratory Distress Respiratory Exam: Bilateral: Clear to Auscultation Cardiovascular Cardiovascular Exam: Regular Rate, Normal Rhythm and Normal Heart Sounds; negative Systolic Murmur or Diastolic Murmur Abdominal Exam Abdominal Exam: Normal Inspection, Normal Bowel Sounds and Soft; negative Tenderness Rectal Rectal Exam: Deferred Extremeties Extremities Exam: Normal Inspection and Normal Capillary Refill Back Back Exam: Normal Inspection; negative (R) CVA Tenderness or (L) CVA Tenderness Neurologic Neurological Exam: Alert, Oriented X3, CN II-XII Intact, Normal Gait and Reflexes Normal; negative Motor Sensory Deficit Patient Oriented To: Person, Place and Time Cranial Nerve Exam: EOM Function (II, III, IV, ): Normal, Facial Sensation (V): Normal, Facial Palsy (VII): Normal, Gag reflex (XI): Normal, Spinal Access ory Function (XI): Normal and Tongue Deviation: Normal Motor Strength - LUE: 5/5 Motor Strength - RUE: 5/5 Motor Strength - LLE: 5/5 Motor Strength - RLE: 5/5 Upper Motor Neuron Exam: Babinski Sign: Normal Psychiatric Psychiatric Exam: Normal Affect and Normal Mood Skin Skin Exam: Warm and Intact MDM Differential Diagnosis Differential Diagnosis: Anemia, CVA, Dehydration, Dysrhythmia, Electrolyte disorder, Hypoglycemia and Other (Neuropathy, PVD. ) COURSE Treatment Treatment: See orders done while patient was in ER. Labs, EKG and Xray discussed. Patient admitted to hospital for further management. Consultation Consultation Comments: Discussed patient with Dr. Swain. He will admit patient. Education/Counseling Education/Counseling: Patient and Family Educated On: Diagnosis ROR Labs Reviewed Laboratory Results Reviewed?: Yes 07/20/23 06:01 07/20/23 06:01 Laboratory: WBC 6.1 X10^3/uL (3.6-10.0) 07/19/23 14:19 RBC 4.66 X10^6/uL (4.7-6.0) L 07/19/23 14:19 Hgb 13.7 g/dL (13.5-18.0) 07/19/23 14:19 Hct 41.0 % (42.0-54.0) L 07/19/23 14:19 MCV 88.2 fL (80.0-100.0) 07/19/23 14:19 MCH 29.4 pg (27.0-34.0) 07/19/23 14:19 MCHC 33.3 g/dL (33.0-35.0) 07/19/23 14:19 RDW 13.4 % (11.6-16.5) 07/19/23 14:19 Plt Count 162 X10^3/uL (150.0-450.0) 07/19/23 14:19 MPV 9.8 fL (7.4-11.0) 07/19/23 14:19 Neut % (Auto) 58.9 % (42.0-75.0) 07/19/23 14:19 Lymph % (Auto) 33.1 % (21.0-51.0) 07/19/23 14:19 [place] % (Auto) 7.3 % (0.0-13.0) 07/19/23 14:19 Eos % (Auto) 0.0 % (0.9-2.9) L 07/19/23 14:19 Baso % (Auto) 0.7 % (0.2-1.0) 07/19/23 14:19 Neut # (Auto) 3.6 x10^3/uL (2.2-4.8) 07/19/23 14:19 Lymph # (Auto) 2.0 X10^3/uL (1.3-2.9) 07/19/23 14:19 [place] # (Auto) 0.4 x10^3/uL (0.3-0.8) 07/19/23 14:19 Eos # (Auto) 0.0 x10^3/uL (0.0-0.2) 07/19/23 14:19 Baso # (Auto) 0.0 X10^3/uL (0.0-0.1) 07/19/23 14:19 Absolute Nucleated RBC 0.1 /100WBC 07/19/23 14:19 PT 13.5 SECONDS (11.8-14.3) 07/19/23 14:19 INR Target Range - 07/19/23 14:19 INR 1.05 (0.8-1.3) 07/19/23 14:19 APTT 35.6 SECONDS (22.9-36.5) 07/19/23 14:19 PTT Comment - 07/19/23 14:19 Sodium 139 mmol/L (136-145) 07/19/23 14:19 Corrected Sodium TNP 07/19/23 14:19 Potassium 4.2 mmol/L (3.5-5.1) 07/19/23 14:19 Chloride 105 mmol/L (98-107) 07/19/23 14:19 Carbon Dioxide 26.9 mmol/L (21-32) 07/19/23 14:19 BUN 17 mg/dL (7-18) 07/19/23 14:19 Creatinine 1.21 mg/dL (0.70-1.30) 07/19/23 14:19 Est GFR (MDRD) Af Amer > 60 (>60) 07/19/23 14:19 Est GFR (MDRD) Non-Af > 60 (>60) 07/19/23 14:19 Glucose 81 mg/dL (65-99) 07/19/23 14:19 Calcium 8.7 mg/dL (8.5-10.1) 07/19/23 14:19 Corrected Calcium TNP 07/19/23 14:19 Magnesium 1.9 mg/dL (2.0-2.9) L 07/19/23 14:19 Total Bilirubin 0.40 mg/dL (0.2-1.0) 07/19/23 14:19 AST 12 Units/L (15-37) L 07/19/23 14:19 ALT 22 Units/L (12-78) 07/19/23 14:19 Alkaline Phosphatase 60 Units/L (46-116) 07/19/23 14:19 Creatine Kinase 159 Units/L (39-308) 07/19/23 14:19 Troponin I High Sens 4.0 ng/L (4.0-60.0) 07/19/23 14:19 Total Protein 7.4 g/dL (6.4-8.2) 07/19/23 14:19 Albumin 3.6 g/dL (3.4-5.0) 07/19/23 14:19 Globulin 3.8 g/dL (2.5-4.5) 07/19/23 14:19 Albumin/Globulin Ratio 0.9 Ratio (1.1-2.1) L 07/19/23 14:19 Triglycerides 67 mg/dL (0-150) 07/19/23 14:19 Cholesterol 200 mg/dL (0-200) 07/19/23 14:19 LDL Cholesterol, Calc 142 mg/dL (0-100) H 07/19/23 14:19 HDL Cholesterol 45 mg/dL (40-60) 07/19/23 14:19 Cholesterol/HDL Ratio 4.4 (0.0-5.0) 07/19/23 14:19 Specimen Type Clean catch urine 07/19/23 16:39 Urine Color Yellow (YELLOW) 07/19/23 16:39 Urine Appearance Clear (CLEAR) 07/19/23 16:39 Urine pH 6.5 (5.0 - 8.0) 07/19/23 16:39 Ur Specific [place] 1.020 (1.000-1.030) 07/19/23 16:39 Urine Protein Negative (NEGATIVE) 07/19/23 16:39 Urine Glucose (UA) Negative (NEGATIVE) 07/19/23 16:39 Urine Ketones Negative (NEGATIVE) 07/19/23 16:39 Urine Blood Negative (NEGATIVE) 07/19/23 16:39 Urine Nitrite Negative (NEGATIVE) 07/19/23 16:39 Urine Bilirubin Negative (NEGATIVE) 07/19/23 16:39 Urine Urobilinogen 1+ (NORMAL) 07/19/23 16:39 Ur Leukocyte Esterase Negative (NEGATIVE) 07/19/23 16:39 XRAY XRAY Interpreted by: Radiologist (Reports noted.) and Self EKG Rate: 77 [place]: Normal Rhythm: Paced Block: None Hypertrophy: None ST: Normal Opioid Opioid Risk Tool Age ([place] box if 16-45): No History of Preadolescent Sexual Abuse: No Total: 0 Total Score Risk Category: Low Risk Copyright: [facility] predicting aberrant behaviors Discharge Plan Diagnosis Discharge Problem: Left-sided weakness Leg pain Qualifiers: Laterality: left Qualified Code(s): M79.605 - Pain in left leg CAD (coronary artery disease) Qualifiers: Coronary Disease-Associated Artery/Lesion type: [place] artery [place] vs. transplanted heart: [place] heart Associated angina: with stable angina Qualified Code(s): I25.118 - Atherosclerotic heart disease of [place] coronary artery with other forms of angina pectoris Hypertension Qualifiers: Hypertension type: primary hypertension Qualified Code(s): I10 - Essential (primary) hypertension Discharge Plan Patient Disposition: ADMITTED INPATIENT Condition: Stable
[2023-07-19 14:39] LABS: BASOPHILS % (AUTO) 0.7 % (0.2-1.0); HEMOGLOBIN 13.7 g/dL (13.5-18.0); LYMPHOCYTES % (AUTO) 33.1 % (21.0-51.0); MEAN CORPUSCULAR HEMOGLOBIN 29.4 pg (27.0-34.0); MEAN CORPUSCULAR HGB CONC 33.3 g/dL (33.0-35.0); MEAN CORPUSCULAR VOLUME 88.2 fL (80.0-100.0); MEAN PLATELET VOLUME 9.8 fL (7.4-11.0); MONOCYTES # (AUTO) 0.4 x10^3/uL (0.3-0.8); MONOCYTES % (AUTO) 7.3 % (0.0-13.0); NEUTROPHILS # (AUTO) 3.6 x10^3/uL (2.2-4.8); NEUTROPHILS % (AUTO) 58.9 % (42.0-75.0); PLATELET COUNT 162 X10^3/uL (150.0-450.0); RED BLOOD COUNT 4.66 X10^6/uL (4.7-6.0); RED CELL DISTRIBUTION WIDTH 13.4 % (11.6-16.5); WHITE BLOOD COUNT 6.1 X10^3/uL (3.6-10.0)
[2023-07-19 14:44] LABS: INR 1.05 (0.8-1.3)
--- NOTE | 2023-07-19 14:47 | EKG ---
Test Reason : possible stroke Blood Pressure : */* mmHG Vent. Rate : 77 BPM Atrial Rate : 77 BPM P-R Int : 190 ms QRS Dur : 86 ms QT Int : 354 ms P-R-T Axes : 15 41 17 degrees QTc Int : 400 ms Atrial-paced rhythm Abnormal ECG No previous ECGs available Confirmed by Donnie Paula MD ([id number]) on 07/20/2023 7:37:44 AM Referred By: Confirmed By: Donnie Paula MD
[2023-07-19] MEDS ORDERED: NS 1,000 ML IV 1,000 ML ONE (14:51)
[2023-07-19] MEDS: NS 1,000 ML IV 1,000 ML IV SCH ×2 (14:56→21:28)
--- NOTE | 2023-07-19 15:04 | CT ---
EXAM: BRAIN W/O CON HISTORY: POSSIBLE STROKE, PT STATES THAT WHEN HE WOKE UP THIS MORNING BOTH LEGS AND HANDS WERE SHAKING, AND FE ELING NUMB AND TINGLING AROUND 10:30 AM; COMPARISON: None TECHNIQUE: Multiple CT axial images of the brain were obtained without IV contrast. Coronal and sagittal images were reconstructed. Dose reduction techniques included Automated Exposure Control (AEC) and adjustme nt of mA and kV. FINDINGS: Age-related findings include central and cortical atrophy with areas of low density in the periventri cular white matter compatible with micro-ischemic changes. Otherwise brown and white matter have norm al differentiation. There is no mass, shift, or hemorrhage. Cerebellar tonsils are at an appropriat e level. No fluid in the sinuses or mucosal thickening to suggest sinusitis. There is no mastoid eff usion. IMPRESSION: 1. No acute finding THIS IS AN ELECTRONICALLY VERIFIED FINAL REPORT 07/19/2023 3:00 PM - Electronically signed by Sae Easton MD
--- NOTE | 2023-07-19 15:07 | RAD ---
EXAM:CHEST, 1 VIEWHISTORY:POSSIBLE STROKE;COMPARISON:Prior study or studies were utilized for comparison during interpretation with the most relevant dated 08/13/2022TECHNIQUE:CHEST, 1 VIEWFINDINGS:Chest:Lines and tubes: Left-sided pacemaker generator with lead or leads in satisfactory position.Mediastinum: Cardiac and mediastinal shadow is within normal limits for size and contour.Pulmonary vessels: No pulmonary vascular congestion.Lung garcia: No suspicious airspace opacity.Pleura: No effusion. No pneumothorax.Bones and soft tissues: No acute osseous or soft tissue abnormality.IMPRESSION:1. No acute cardiopulmonary abnormalityTHIS IS AN ELECTRONICALLY VERIFIED FINAL REPORT07/19/2023 3:04 PM - Electronically signed by Marvin Nava MD
[2023-07-19 15:09] LABS: ALANINE AMINOTRANSFERASE 22 Units/L (12-78); ALBUMIN 3.6 g/dL (3.4-5.0); ALKALINE PHOSPHATASE 60 Units/L (46-116); ASPARTATE AMINO TRANSFERASE 12 Units/L (15-37); BLOOD UREA NITROGEN 17 mg/dL (7-18); CALCIUM 8.7 mg/dL (8.5-10.1); CARBON DIOXIDE 26.9 mmol/L (21-32); CHLORIDE 105 mmol/L (98-107); CHOL/HDL RATIO 4.4 (0.0-5.0); CHOLESTEROL 200 mg/dL (0-200); CREATINE KINASE 159 Units/L (39-308); CREATININE 1.21 mg/dL (0.70-1.30); GLUCOSE 81 mg/dL (65-99); HDL CHOLESTEROL 45 mg/dL (40-60); POTASSIUM 4.2 mmol/L (3.5-5.1); SODIUM 139 mmol/L (136-145); TOTAL PROTEIN 7.4 g/dL (6.4-8.2); TRIGLYCERIDES 67 mg/dL (0-150); eGFR NON BLACK RACES > 60 (>60)
[2023-07-19] MEDS ORDERED: ASPIRIN ONE (16:21)
[2023-07-19] MEDS: ASPIRIN PO ONE (16:26)
[2023-07-19 16:49] LABS: BILIRUBIN,URINE NEGATIVE (NEGATIVE); BLOOD/HEMOGLOBIN,URINE NEGATIVE (NEGATIVE); GLUCOSE, URINE NEGATIVE (NEGATIVE); KETONES,URINE NEGATIVE (NEGATIVE); LEUKOCYTE ESTERASE ,URINE NEGATIVE (NEGATIVE); NITRITES,URINE NEGATIVE (NEGATIVE); PH,URINE 6.5 (5.0 - 8.0); PROTEIN,URINE NEGATIVE (NEGATIVE); UROBILINOGEN,URINE 1+ (NORMAL)
[2023-07-19 16:53] LABS: APPEARANCE,URINE CLEAR (CLEAR); COLOR,URINE YELLOW (YELLOW)
--- NOTE | 2023-07-19 17:24 | VAS ---
EXAM: CAROTID US HISTORY: POSSIBLE STROKE; POSSIBLE STROKE, LEGS HURTING, WEAKNESS COMPARISON: None. TECHNIQUE: Grayscale and color Doppler imaging of the bilateral carotid and vertebral artery systems with spectr al waveform analysis. Stenotic assessment is based on NASCET criteria. FINDINGS: Mild plaque/intimal thickening is identified in the bilateral carotid bulbs and proximal internal car otid arteries. Right: CCA peak systolic velocity is 117 centimeters/second. ICA peak systolic velocity is 90 centim eters/second. The vertebral artery flow is antegrade. ICA to CCA ratio is 0.98. Left: CCA peak systolic velocity is 78 centimeters/second. ICA peak systolic velocity is 67 centimet ers/second. The vertebral artery flow is antegrade. The ICA to CCA ratio is 0.95. IMPRESSION: Right ICA stenosis is less than 50% based on NASCET criteria. Left ICA stenosis is less than 50% based on NASCET criteria. Bilateral vertebral arteries maintain an antegrade pattern of flow. THIS IS AN ELECTRONICALLY VERIFIED FINAL REPORT 07/19/2023 5:21 PM - Electronically signed by Fadi Torres MD
[2023-07-19] MEDS ORDERED: CONSULT PHARMACY - POTASSIUM & MAGNESIUM XX SCH (18:00)
[2023-07-19] MEDS: MAGNESIUM SULFATE 1 GRAM/100 mL PREMIX 1 G/100 ML BAG IV SCH (18:20)
[2023-07-19 18:42] VITALS: BMI 30.1
[2023-07-20 06:18] LABS: BASOPHILS % (AUTO) 0.8 % (0.2-1.0); HEMATOCRIT 39.3 % (42.0-54.0); HEMOGLOBIN 12.9 g/dL (13.5-18.0); LYMPHOCYTES # (AUTO) 2.1 X10^3/uL (1.3-2.9); LYMPHOCYTES % (AUTO) 42.3 % (21.0-51.0); MEAN CORPUSCULAR HGB CONC 32.8 g/dL (33.0-35.0); MEAN CORPUSCULAR VOLUME 88.4 fL (80.0-100.0); MEAN PLATELET VOLUME 10.1 fL (7.4-11.0); MONOCYTES # (AUTO) 0.4 x10^3/uL (0.3-0.8); MONOCYTES % (AUTO) 8.2 % (0.0-13.0); NEUTROPHILS # (AUTO) 2.4 x10^3/uL (2.2-4.8); NEUTROPHILS % (AUTO) 48.7 % (42.0-75.0); PLATELET COUNT 159 X10^3/uL (150.0-450.0); RED BLOOD COUNT 4.45 X10^6/uL (4.7-6.0); RED CELL DISTRIBUTION WIDTH 13.4 % (11.6-16.5); WHITE BLOOD COUNT 4.9 X10^3/uL (3.6-10.0)
[2023-07-20 06:31] LABS: ALANINE AMINOTRANSFERASE 19 Units/L (12-78); ALBUMIN 3.3 g/dL (3.4-5.0); ALKALINE PHOSPHATASE 57 Units/L (46-116); ASPARTATE AMINO TRANSFERASE 12 Units/L (15-37); BLOOD UREA NITROGEN 14 mg/dL (7-18); CALCIUM 8.5 mg/dL (8.5-10.1); CARBON DIOXIDE 25.2 mmol/L (21-32); CHLORIDE 107 mmol/L (98-107); COR CA(FOR HYPOALB) 9.1 mg/dL (8.5-10.1); CREATININE 1.08 mg/dL (0.70-1.30); GLUCOSE 98 mg/dL (65-99); POTASSIUM 4.1 mmol/L (3.5-5.1); SODIUM 139 mmol/L (136-145); TOTAL PROTEIN 6.8 g/dL (6.4-8.2); eGFR NON BLACK RACES > 60 (>60)
[2023-07-20] MEDS: ASPIRIN PO SCH (09:00)
[2023-07-20] MEDS: PLAVIX PO SCH (09:00)
[2023-07-20 16:08] VITALS: BP 130/78; PULSE 72; TEMP 98; O2SAT 99
--- NOTE | 2023-07-20 20:16 | RAD ---
EXAM: LUMBAR SPINE, COMPLETE HISTORY: LOWER BACK PAIN; LEFT SIDED WEAKNESS, LEG PAIN, HTN Unavailable COMPARISON: None. FINDINGS: Normal alignment of the lumbar spine is maintained. The posterior elements appear unremarkable in the ir appearance. Disc space narrowing throughout the lumbar spine.. No evidence for acute fracture ca n be identified. IMPRESSION: Moderate degenerative changes throughout the lumbar spine. No acute lumbar spine fracture. THIS IS AN ELECTRONICALLY VERIFIED FINAL REPORT 07/20/2023 8:13 PM - Electronically signed by Thom Richmond MD
--- NOTE | 2023-07-20 20:28 | TELESTROKE ---
[facility] Consult Date of Consult Date of Exam: 07/19/23 Time of Arrival to the ED: 12:46 Allergies Allergies Allergy/AdvReac Type Severity Reaction Status Date / Time No Known Drug Allergies Allergy Verified 03/07/21 19:26 Vital Signs Vital Signs: Temp Pulse Pulse Resp BP BP Pulse Ox 07/20/23 16:00 98.0 F 72 20 130/78 99 07/20/23 12:00 98.8 F 70 20 128/82 97 07/20/23 08:21 07/20/23 07:00 07/20/23 08:00 97.8 F 80 20 137/83 100 07/20/23 04:00 97.8 F 71 20 106/62 96 07/20/23 00:00 97.8 F 72 20 108/66 96 07/19/23 19:00 07/19/23 20:00 98.5 F 74 20 139/74 99 07/19/23 19:21 07/19/23 17:46 07/19/23 18:05 97.9 F 80 20 152/99 99 07/19/23 17:39 20 07/19/23 17:00 152/89 07/19/23 16:45 72 153/96 99 07/19/23 16:30 153/96 98 07/19/23 15:30 65 137/89 99 07/19/23 15:15 66 97 07/19/23 15:00 72 134/84 98 07/19/23 12:48 97.7 F 100 H 20 118/68 96 O2 Del Method 07/20/23 16:00 Room Air 07/20/23 12:00 Room Air 07/20/23 08:21 Room Air 07/20/23 07:00 Room Air 07/20/23 08:00 Room Air 07/20/23 04:00 Room Air 07/20/23 00:00 Room Air 07/19/23 19:00 Room Air 07/19/23 20:00 Room Air 07/19/23 19:21 Room Air 07/19/23 17:46 Room Air 07/19/23 18:05 Room Air 07/19/23 17:39 07/19/23 17:00 07/19/23 16:45 Room Air 07/19/23 16:30 Room Air 07/19/23 15:30 07/19/23 15:15 Room Air 07/19/23 15:00 Room Air 07/19/23 12:48 History of Present Illness History of Present Illness: [facility] Patient Name:Humberto Rogers Date of :1955 Identification Number: Date of Service:07/19/2023 14:13:30 Diagnosis:R29.810 - Facial numbness/ Facial weakness Impression: Numbness. Limited historian. Etiology: rule out infectious, toxic metabolic causes vs stroke. HCT showed no hemorrhage. Patient is not a candidate for IV thrombolytics, outside the window. Low suspicion for LVO. Not a candidate for TAWNYA. Recommend admission for stroke workup as below. Our recommendations are outlined below. Recommendations: Stroke/Telemetry Floor Neuro Checks Bedside Swallow Eval DVT Prophylaxis IV Fluids, Normal Saline Euglycemia and Avoid Hyperthermia (PRN Acetaminophen) Initiate dual antiplatelet therapy with Aspirin 81 mg daily and Clopidogrel 75 mg daily. Antihypertensives PRN if Blood pressure is greater than 220/120 or there is a concern for End organ damage/contraindications for permissive HTN. If blood pressure is greater than 220/120 give labetalol PO or IV or Vasotec IV with a goal of 15% reduction in BP during the first 24 hours. Brain MRI without gadolinium Transthoracic echo Hemoglobin A1C and lipid panel Infectious workup Sign Out: Discussed with Emergency Department Provider Advanced Imaging: Advanced Imaging Deferred because: Non-disabling symptoms as verified by the patient; no cortical signs so not consistent with LVO Metrics: Last Known Well: 07/18/2023 21:30:00 [facility] Notification Time: 07/19/2023 14:13:30 Arrival Time: 07/19/2023 12:46:00 Stamp Time: 07/19/2023 14:13:30 Initial Response Time: 07/19/2023 14:17:49Symptoms: numbness. Initial patient interaction: 07/19/2023 14:23:14 NIHSS Assessment Completed: 07/19/2023 14:35:47Patient is not a candidate for Thrombolytic. Thrombolytic Medical Decision: 07/19/2023 14:35:47Patient was not deemed joelle date for Thrombolytic because of following reasons: Last Well Known Above 4.5 Hours. I personally Reviewed the CT Head and it Showed no hemorrhage. Primary Provider Notified of Diagnostic Impression and Management Plan on: 07/19/2023 15:05:36 History of Present Illness:Patient is a 67 year old Male. Patient was brought by private transportation with symptoms of numbness. 67 years old man presenting for evaluation of acute onset bilateral hand feet numbness. Last known well time is yesterday at 2130, bedtime. Patient woke up today with bilateral hand and feet numbness at 10:30 AM. Family also reported worsening balance although at baseline patient walks with a cane. Patient is a limited historian and unable to provide details of the present illness. Past Medical History: Hypertension Hyperlipidemia Coronary Artery Disease There is no history of Atrial Fibrillation There is no history of Stroke Othere PMH: Dementia Medications: No Anticoagulant use Antiplatelet use:YesASA 81 mg Reviewed EMR for current medications Allergies: Reviewed Social History: Smoking: No Alcohol Use: No Drug Use: No Family History: There Is Family History Of:non contributory There is no family history of premature cerebrovascular disease pertinent to this consultation ROS : 14 Points Review of Systems was performed and was negative except mentioned in HPI. Past Surgical History: There Is No Surgical History Contributory To Todays Visit Examination: BP(110/60),Pulse(100), 1A: Level of Consciousness - Alert; keenly responsive+ 0 1B: Ask Month and Age - 1 Question Right+ 1 1C: Blink Eyes & Squeeze Hands - Performs Both Tasks+ 0 2: Test Horizontal Extraocular Movements - Normal+ 0 3: Test Visual [place] - No Visual Loss+ 0 4: Test Facial Palsy (Use Grimace if Obtunded) - Normal symmetry+ 0 5A: Test Left Arm Motor Drift - No Drift for 10 Seconds+ 0 5B: Test Right Arm Motor Drift - No Drift for 10 Seconds+ 0 6A: Test Left Leg Motor Drift - No Drift for 5 Seconds+ 0 6B: Test Right Leg Motor Drift - No Drift for 5 Seconds+ 0 7: Test Limb Ataxia (FNF/Heel-Montiel) - No Ataxia+ 0 8: Test Sensation - Mild-Moderate Loss: Less Sharp/More Dull+ 1 9: Test Language/Aphasia - Normal; No aphasia+ 0 10: Test Dysarthria - Normal+ 0 11: Test Extinction/Inattention - No abnormality+ 0 NIHSS Score:2 NIHSS Free Text :feels different on Lt, unable to explain further Pre-Morbid Modified Martha Scale:3 Points = Moderate disability; requiring some help, but able to walk without assistance Spoke with :Dr. Byers Patient/Family was informed the Neurology Consult would occur via TeleHealth consult by way of interactive audio and video telecommunications and consented to receiving care in this manner. Patient is being evaluated for possible acute neurologic impairment and high probability of imminent or life-threatening deterioration. I spent total of 45 minutes providing care to this patient, including time for face to face visit via telemedicine, review of medical records, imaging studies and discussion of findings with providers, the patient and/or family. Dr Monet Then [facility] For Inpatient follow-up with [facility] physician please call [facility] . This is not an outpatient service. Post hospital discharge, please contact hospital directly. Please call or reconsult our service if there are any clinical or diagnostic changes. Medical Decision Making 07/20/23 06:01 07/20/23 06:01 Labs: Laboratory Results - last 24 hr 07/20/23 06:01 WBC 4.9 RBC 4.45 L Hgb 12.9 L Hct 39.3 L MCV 88.4 MCH 29.0 MCHC 32.8 L RDW 13.4 Plt Count 159 MPV 10.1 Neut % (Auto) 48.7 Lymph % (Auto) 42.3 [place] % (Auto) 8.2 Eos % (Auto) 0.0 L Baso % (Auto) 0.8 Neut # (Auto) 2.4 Lymph # (Auto) 2.1 [place] # (Auto) 0.4 Eos # (Auto) 0.0 Baso # (Auto) 0.0 Absolute Nucleated RBC 0.2 Sodium 139 Corrected Sodium TNP Potassium 4.1 Chloride 107 Carbon Dioxide 25.2 BUN 14 Creatinine 1.08 Est GFR (MDRD) Af Amer > 60 Est GFR (MDRD) Non-Af > 60 Glucose 98 Calcium 8.5 Corrected Calcium 9.1 Magnesium 2.0 Total Bilirubin 0.40 AST 12 L ALT 19 Alkaline Phosphatase 57 Total Protein 6.8 Albumin 3.3 L Globulin 3.5 Albumin/Globulin Ratio 0.9 L Vitamin B12 423 Folate 5.3 L
== END 2023-07-20 16:15 | disposition home health service (06) ==
LOC: ER 12:46 → MED/SURG 12:46
PROVIDERS: ADMIT Family Medicine; ATTEND Family Medicine
DX: R79.89 Other specified abnormal findings of blood chemistry; I10 Essential (primary) hypertension; E83.42 Hypomagnesemia; R26.89 Other abnormalities of gait and mobility; M54.59 Other low back pain; R53.1 Weakness; M51.36 Other intervertebral disc degeneration, lumbar region; R29.810 Facial weakness; I25.118 Atherosclerotic heart disease of native coronary artery with other forms of angina pectoris; M79.605 Pain in left leg; R20.0 Anesthesia of skin